=== PATIENT | female | born 1950 | race Caucasian/White ===

== ENCOUNTER 2017-10-31 19:17 | Emergency (ER) | payer OTHER ==
[~2017-10-31] VITALS: Ht 160 cm; Wt 56.7 kg
[~2017-10-31 19:17] MED LIST: ALBUTEROL SULF8.5 GM IH; ATIVAN0.5 MG PO; BENZONATATE200 MG PO; BREO ELLIPTA I1 EACH INH; CLARITIN10 MG PO; DULCOLAX5 MG PO; EPIPEN 2-P0.3 MG/0.3 IM; EXCEDRIN MIGRA1 EAC2 PO; FAMOTIDINE20 MG PO; LIDODERM700 MG TD; LYRICA50 MG PO; MONTELUKAST SOD10 MG PO; NASALCROM26 ML NAS; PREMARIN0.625 MG PO; PROMETHAZINE12.5 M1 PO; SUDOGEST30 MG PO; ULTRAM50 MG PO; VENTOLIN HFA18 GM INH; ZOFRAN ODT4 MG SL; ZYRTEC10 MG PO
[2017-10-31] MEDS ORDERED: ZOFRAN4 MG PO (22:52)
== END 2017-10-31 23:37 | disposition home or self-care (01) ==
LOC: ED 19:17
DX: R10.30 Lower abdominal pain, unspecified (principal); J32.9 Chronic sinusitis, unspecified; Z88.2 Allergy status to sulfonamides; Z88.5 Allergy status to narcotic agent; Z88.6 Allergy status to analgesic agent; Z91.040 Latex allergy status; Z88.8 Allergy status to other drugs, medicaments and biological substances; Z88.1 Allergy status to other antibiotic agents; Z79.899 Other long term (current) drug therapy
CPT/HCPCS: 80053; 81001; 83690; 85025; 96374; 99283; J2405; J7030

== ENCOUNTER 2018-07-09 10:38 | Emergency (ER) | payer OTHER ==
[~2018-07-09] VITALS: Ht 160 cm; Wt 56.8 kg
--- OUTSIDE RECORDS SUMMARY | ~2018-07-09 | XMS | Encounter Summary ---
Demographics + + + | Address | [address] | | | [place] [address] | + + + | Home Phone | | + + + | Preferred Language | Unknown | + + + | Marital Status | | + + + | Yarsani Affiliation | Unknown | + + + | Race | Unknown | + + + | Ethnic Group | Unknown | + + + Author + + + | Author | [facility] | | | and Satishana | + + + | Organization | [facility] | | | and Satishana | + + + | Address | Unknown | + + + | Phone | Unavailable | + + + Support + + + + + | Name | Relationship | Address | Phone | + + + + + | Faraz Kwan | ECON | [address] | | | | | [place] | | | | | [address] | | + + + + + Care Team Providers + +------+ + | Care Medical Administrative Name | Role | Phone | + +------+ + | Joey Baez MD | PCP | | + +------+ + Reason for Visit + + + | Reason | Comments | + + + | Referral | surgery | + + + Encounter Details +--------+ + + + + | Date | Type | Department | Care Team | Description | +--------+ + + + + | 05/24/ | Telephone | [facility] | Lawrence Carr MD | Referral (surgery) | | 2018 | | GASTROENTEROLOGY | [address], [place] | | | | | [address] [place] | [address] [place], [place] | | | | | [address] [place], [place] | [address] | | | | | [address] | | | | | | [phone] | | | +--------+ + + + + Social History + +--------+ +--------+------+ | Tobacco Use | Types | Packs/Day | Years | Date | | | | | Used | | + +--------+ +--------+------+ | Current Every Day | Cigars | | | | | Smoker | | | | | + +--------+ +--------+------+ + +---+---+---+ | Smokeless Tobacco: | | | | | Never Used | | | | + +---+---+---+ + + | Comments: 1-2 times per year | + + + + +---------+ + | Alcohol Use | Drinks/We | oz/Week | Comments | | | ek | | | + + +---------+ + | Yes | 3 | 1.8 | 2-3 glasses of wine a week | | | Glasses | | | | | of wine | | | + + +---------+ + + + + | Sex Assigned at | Date Recorded | | | | + + + | Not on file | | + + + as of this encounter Plan of Treatment Not on fileas of this encounter Visit Diagnoses Not on filein this encounter"
--- OUTSIDE RECORDS SUMMARY | ~2018-07-09 | XMS | Encounter Summary ---
Demographics + + + | Address | [address] | | | [place] [address] | + + + | Home Phone | | + + + | Preferred Language | Unknown | + + + | Marital Status | | + + + | Judaism Affiliation | Unknown | + + + | Race | Unknown | + + + | Ethnic Group | Unknown | + + + Author + + + | Author | [facility] | | | and Satishana | + + + | Organization | [facility] | | | and Satishana | + + + | Address | Unknown | + + + | Phone | Unavailable | + + + Support + + + + + | Name | Relationship | Address | Phone | + + + + + | Faraz Kwan | ECON | [address] | | | | | [place] | | | | | [address] | | + + + + + Care Team Providers + +------+ + | Care Engineering Surveyor Name | Role | Phone | + +------+ + | Joey Baez MD | PCP | | + +------+ + Reason for Referral Evaluate & Treat (Routine) + + + + + + + | Status | Reason | Specialty | Diagnoses / | Referred By | Referred To | | | | | Procedures | Contact | Contact | + + + + + + + | Authorized | Specialty | Surgery | Diagnoses | Harri, | Courtney, | | | Services | | | Lawrence Hinson MD | Herminia Rubio, | | | Required | | Gastrointest | [address] | | | | | inal tract | [place], [place] | [address] | | | | | imaging | [address] [place] | [address] | | | | | abnormality | [place], [place] | [place], [place] | | | | | Obstipation | [address] | [address] Phone: | | | | | | Phone: | [phone] | | | | | Generalized | [phone] | Fax: | | | | | abdominal | Fax: | [phone] | | | | | pain | [phone] | | + + + + + + + Reason for Visit + + + | Reason | Comments | + + + | Insurance | referral to surgeon | | Authorization | | + + + Encounter Details +--------+ + + + + | Date | Type | Department | Care Team | Description | +--------+ + + + + | 05/01/ | Telephone | [facility] | Lawrence Carr MD | Insurance | | 2018 | | GASTROENTEROLOGY | [address], [place] | Authorization | | | | [address] [place] | [address] [place], [place] | (referral to | | | | [address] [place], [place] | [address] | surgeon) | | | | [address] | | | | | | [phone] | | | +--------+ + + + [...] as of this encounter Plan of Treatment + +--------+ + + | Name | Priori | Associated Diagnoses | Order Schedule | | | ty | | | + +--------+ + + | Ambulatory referral to General | Routin | Gastrointestinal | Expected: | | Surgery | e | tract imaging | 05/23/2018, Expires: | | | | abnormality | 05/09/2019 | | | | Obstipation | | | | | Generalized | | | | | abdominal pain | | + +--------+ + + as of this encounter Visit Diagnoses + + | Diagnosis | + + | Gastrointestinal tract imaging abnormality - Primary | + + | Nonspecific (abnormal) findings on radiological and other examination of | | gastrointestinal tract | + + | Obstipation | + + | Unspecified constipation | + + | Generalized abdominal pain | + + | Abdominal pain, generalized | + +"
--- OUTSIDE RECORDS SUMMARY | ~2018-07-09 | XMS | Encounter Summary ---
Demographics + + + | Address | [address] | | | [place] [address] | + + + | Home Phone | | + + + | Preferred Language | Unknown | + + + | Marital Status | | + + + | Christianity Affiliation | Unknown | + + + | Race | Unknown | + + + | Ethnic Group | Unknown | + + + Author + + + | Author | [facility] | | | and Satishana | + + + | Organization | [facility] | | | and Satishana | + + + | Address | Unknown | + + + | Phone | Unavailable | + + + Support + + + + + | Name | Relationship | Address | Phone | + + + + + | Faraz Kwan | ECON | [address] | | | | | [place], [place] | | | | | [address] | | + + + + + Care Team Providers + +------+ + | Care Timber Feller Name | Role | Phone | + +------+ + | Joey Baez MD | PCP | | + +------+ + Encounter Details +--------+ + + + + | Date | Type | Department | Care Team | Description | +--------+ + + + + | 05/09/ | Documentati | [facility] | Lawrence Carr MD | | | 2018 | on | GASTROENTEROLOGY | [address], [place] | | | | | [address] [place] | [address] [place], [place] | | | | | [address] [place], [place] | [address] | | | | | [address] | | | | | | [phone] | | | +--------+ + + + [...]
--- OUTSIDE RECORDS SUMMARY | ~2018-07-09 | XMS | Encounter Summary ---
Demographics + + + | Address | [address] | | | [place] [address] | + + + | Home Phone | | + + + | Preferred Language | Unknown | + + + | Marital Status | | + + + | Confucianist Affiliation | Unknown | + + + | Race | Unknown | + + + | Ethnic Group | Unknown | + + + Author + + + | Author | [facility] | | | and Satishana | + + + | Organization | [facility] | | | and Satishana [...] [place] | | | | | [address] | | + + + + + Care Team Providers + +------+ + | Care Tobacco Buyer Name | Role | Phone | + +------+ + | Joey Baez MD PCP | | + +------+ + Reason for Visit + + + | Reason | Comments | + + + | Appointment | simona enriquez study 04/28/18 | + + + Encounter Details +--------+ + + + + | Date | Type | Department | Care Team | Description | +--------+ + + + + | 04/12/ | Telephone | [facility] [place] | Lawrence Carr MD | Appointment (sit | | 2017 | | GASTROENTEROLOGY | [address] [place] | enriquez study 04/28/18) | | | | [address] [place] | [address] [place], [place] | | | | | [address] [place], [place] | [address] | | | | | [address] | | | | | | [phone] | | | +--------+ + + + [...] Treatment Not on fileas of this encounter Results XR Abdomen AP (05/04/2018 0942) + + + | Narrative | Performed At | + + + | CLINICAL INFORMATION: Constipation. COMPARISON: January 29, 2018. | [facility] | | FINDINGS: Frontal views of the abdomen. Bowel gas pattern: No | | | evidence of bowel obstruction. 10 markers are noted within the | | | left colon. Abnormal calcifications: None. Bones: No acute | | | abnormality. Other: Visualized bases are clear. Surgical clips | | | are noted at the left hemipelvis. IMPRESSION - Persistent | | | retention of 10 markers. Dictated and Signed by: | | | Tung Borrero MD Electronically signed: 05/04/2018 11:13 AM | | + + + + + | Procedure Note | + + | Raheem, Rad Results In - 05/04/2018 1117 PDT CLINICAL INFORMATION: Constipation. | | | | COMPARISON: January 29, 2018. | | | | FINDINGS: | | Frontal views of the abdomen. | | | | Bowel gas pattern: No evidence of bowel obstruction. 10 markers are noted | | within the left colon. | | | | Abnormal calcifications: None. | | | | Bones: No acute abnormality. | | | | Other: Visualized bases are clear. Surgical clips are noted at the left | | hemipelvis. | | | | | | IMPRESSION - Persistent retention of 10 markers. | | | | | | Dictated and Signed by: Tung Borrero MD | | Electronically signed: 05/04/2018 11:13 AM | + + + +---------+ + + | Performing | Address | City/State/Zipcode | Phone Number | | Organization | | | | + +---------+ + + | [facility] | | | | + +---------+ + + XR Abdomen AP (05/01/2018 0943) + + + | Narrative | Performed At | + + + | CLINICAL INFORMATION: Constipation. COMPARISON: 12/15/2017. | [facility] | | FINDINGS: Frontal view of the abdomen. Bowel gas pattern: No | | | evidence of bowel obstruction. Mild to moderate amount of stool | | | throughout the colon. 47 markers are noted. Abnormal | | | calcifications: None identified. Bones: No acute abnormality. | | | Other: Surgical clips are noted at the left hemipelvis. | | | IMPRESSION - 47 markers remain within the colon. Mild to | | | moderate stool burden. Dictated and Signed by: | | | Tung Borrero MD Electronically signed: 05/01/2018 9:58 AM | | + + + + + | Procedure Note | + + | Raheem, Rad Results In - 05/01/2018 1001 PDT CLINICAL INFORMATION: Constipation. | | | | COMPARISON: 12/15/2017. | | | | FINDINGS: | | Frontal view of the abdomen. | | | | Bowel gas pattern: No evidence of bowel obstruction. Mild to moderate amount of | | stool throughout the colon. 47 markers are noted. | | | | Abnormal calcifications: None identified. | | | | Bones: No acute abnormality. | | | | Other: Surgical clips are noted at the left hemipelvis. | | | | | | IMPRESSION - | | 47 markers remain within the colon. | | | | Mild to moderate stool burden. | | | | | | Dictated and Signed by: Tung Borrero MD | | Electronically signed: 05/01/2018 9:58 AM | + + + +---------+ + + | Performing | Address | City/State/Zipcode | Phone Number | | Organization | | | | + +---------+ + + | [facility] | | | | + +---------+ + + in this encounter Visit Diagnoses + + | Diagnosis | + + | Constipation, unspecified constipation type - Primary | + +"
--- OUTSIDE RECORDS SUMMARY | ~2018-07-09 | XMS | Encounter Summary ---
Demographics + + + | Address | [address] | | | [place] [address] | + + + | Home Phone | | + + + | Preferred Language | Unknown | + + + | Marital Status | | + + + | Roman Catholic Affiliation | Unknown | + + + | Race | Unknown | + + + | Ethnic Group | Unknown | + + + Author + + + | Author | [facility] | | | and Satishana | + + + | Organization | [facility] | | | and [...] [place], [place] | | | | | [address] | | + + + + + Care Team Providers + +------+ + | Care Resin Coater Name | Role | Phone | + [...] | on | GASTROENTEROLOGY | [address], [place] | | | | | [address] [place] | [address] [place], [place] | | | | | [address] [place], [place] | [address] | | | | | [address] | | | | | | [phone] | | | +--------+ + + + [...] + + + as of this encounter Progress Notes Lawrence Carr MD - 05/09/2018 1671 PDTThe patient's colonic transit study was abnormal. She had 10 clips retained within the left colon on day 6. To complete the evaluation she sh ould have deficography and possible anal rectal manometry. [facility] [place] and she provided us with names with respect to the same.in this enco unter Plan of Treatment Not on fileas of this encounter Visit Diagnoses Not on filein this encounter"
--- OUTSIDE RECORDS SUMMARY | ~2018-07-09 | XMS | Encounter Summary ---
Demographics + + + | Address | [address] | | | [place] [address] | + + + | Home Phone | | + + + | Preferred Language | Unknown | + + + | Marital Status | | + + + | Zoroastrian Affiliation | Unknown | + + + | Race | Unknown | + + + | Ethnic Group | Unknown | + + + Author + + + | Author | [facility] | | | and Satishana | + + + | Organization | [facility] | | | and [...] [place] | | | | | [address] | | + + + + + Care Team Providers + +------+ + | Care Director Of Aviation Name | Role | Phone | + [...] 2018 | | GASTROENTEROLOGY | [address], [place] | | | | | [address] [place] | [address] [place], [place] | | | | | [address] [place], [place] | [address] | | | | | [address] | | | | | | [phone] | | | +--------+ + + + [...]
--- OUTSIDE RECORDS SUMMARY | ~2018-07-09 | XMS | Encounter Summary ---
Demographics + + + | Address | [address] | | | [place] [address] | + + + | Home Phone | | + + + | Preferred Language | Unknown | + + + | Marital Status | | + + + | Mandaen Affiliation | Unknown | + + + | Race | Unknown | + + + | Ethnic Group | Unknown | + + + Author + + + | Author | [facility] | | | and Satishana | + + + | Organization | [facility] | | | and Satishana [...] [place], [place] | | | | | [address] | | + + + + + Care Team Providers + +------+ + | Care Healthcare Management Consultant Name | Role | Phone | + +------+ + | Jeoy Baez MD | PCP | | + +------+ + Encounter Details +--------+ + + + + | Date | Type | Department | Care Team | Description | +--------+ + + + + | 05/09/ | Documentati | [facility] [place] | Lawrence Carr MD | | | 2018 | on | GASTROENTEROLOGY | [address], [place] | | | | | [address] [place] | [address] [place], [place] | | | | | [address] [place], [place] | [address] | | | | | [address] | | | | | | [phone] | | | +--------+ + + + [...] Progress Notes Lawrence Carr MD - 05/09/2018 5791 PDTThe patient's colonic transit study was abnormal. She had 10 clips retained within the left colon on day 6. To complete the evaluation she sh ould have deficography and possible anal rectal manometry. [facility] [place] and she provided us with names with respect to the same.in this enco unter Plan of Treatment Not on fileas of this encounter Visit Diagnoses Not on filein this encounter"
--- OUTSIDE RECORDS SUMMARY | ~2018-07-09 | XMS | Clinical Summary ---
Demographics + + + | Address | [address] | | | [place] [address] | + + + | Home Phone | | + + + | Preferred Language | Unknown | + + + | Marital Status | | + + + | Church Affiliation | Unknown | + + + | Race | Unknown | + + + | Ethnic Group | Unknown | + + + Author + + + | Author | [facility] | | | and Satishana | + + + | Organization | [facility] | | | and Satishana | + + + | Address | Unknown | + + + | Phone | Unavailable | + + + Support + + + + + | Name | Relationship | Address | Phone | + + + + + | Faraz Mcelroy | ECON | [address] | | | | | [place] | | | | | [address] | | + + + + + Care Team Providers + +------+ + | Care Bilingual Sales Consultant Name | Role | Phone | + +------+ + | Joey Baez MD | PP | | + +------+ + Allergies + + + + + + | Active Allergy | Reactions | Severity | Noted | Comments | | | | | Date | | + + + + + + | Acetaminophen | Hives, Swelling | Medium | 12/06/19 | | | | | | 18 | | + + + + + + | Adhesive & Tape | Other (See Comments) | Medium | 02/02/20 | blisters | | | | | 18 | | + + + + + + | Bacitracin-Neomycin- | Rash | Low | 12/06/19 | | | Polymyxin | | | 18 | | + + + + + + | Celecoxib | Other (See Comments) | | 12/06/19 | Doesn't recall | | | | | 18 | reaction | + + + + + + | Codeine | Shortness Of Breath, | High | 12/06/19 | | | | Swelling | | 18 | | + + + + + + | Fomepizole | Other (See Comments) | | 12/06/19 | Doesn't recall | | | | | 18 | reaction | + + + + + + | Ibuprofen | Itching, Swelling | Medium | 12/06/19 | | | | | | 18 | | + + + + + + | Latex | Other (See Comments) | Medium | 12/06/19 | blisters | | | | | 18 | | + + + + + + | Morphine | Shortness Of Breath | High | 12/06/19 | | | | | | 18 | | + + + + + + | Naproxen | Itching, Swelling, | Medium | 12/06/19 | | | | Rash | | 18 | | + + + + + + | Rofecoxib | Other (See Comments) | | 12/06/19 | Doesn't recall | | | | | 18 | reaction | + + + + + + | Salicylates | Other (See Comments) | | 12/06/19 | Doesn't recall | | | | | 18 | reaction | + + + + + + | Sulfa Antibiotics | Anaphylaxis | High | 12/06/19 | | | | | | 18 | | + + + + + + | Sulfinpyrazone | Anaphylaxis | High | 12/06/19 | | | | | | 18 | | + + + + + + | Sulfonylureas | Anaphylaxis | High | 12/06/19 | | | | | | 18 | | + + + + + + | Thiazide-Type | Other (See Comments) | | 12/06/19 | Doesn't recall | | Diuretics | | | 18 | reaction | + + + + + + | Tipranavir | Other (See Comments) | | 12/06/19 | Doesn't recall | | | | | 18 | reaction | + + + + + + | Trimethoprim | Other (See Comments) | | 12/06/19 | Doesn't recall | | | | | 18 | reaction | + + + + + + | Triptans | Other (See Comments) | | 12/06/19 | Doesn't recall | | | | | 18 | reaction | + + + + + + Current Medications + + +---------+---------+------+------+-------+ | Prescription | Sig. | Disp. | Refills | Star | End | Statu | | | | | | t | Date | s | | | | | | Date | | | + + +---------+---------+------+------+-------+ | loratadine | Take 10 mg by mouth | | | | | Activ | | (CLARITIN) 10 mg | Daily. | | | | | e | | tablet | | | | | | | + + +---------+---------+------+------+-------+ | EPINEPHrine | Inject 0.3 mg into | | | | | Activ | | auto-injector | the muscle as needed | | | | | e | | (EPIPEN 2-SABRA) 0.3 | for Anaphylaxis. | | | | | | | mg/0.3 mL injection | | | | | | | + + +---------+---------+------+------+-------+ | pregabalin | Take 50 mg by mouth | | | | | Activ | | (LYRICA) 50 MG | 3 times daily. 1-3 | | | | | e | | capsule | times daily if | | | | | | | | needed | | | | | | + + +---------+---------+------+------+-------+ | estrogens, | Take 0.625 mg by | | | | | Activ | | conjugated, | mouth Daily. | | | | | e | | (PREMARIN) 0.625 mg | | | | | | | | tablet | | | | | | | + + +---------+---------+------+------+-------+ | albuterol | Inhale 2 puffs into | | | | | Activ | | (VENTOLIN HFA) 90 | the lungs every 6 | | | | | e | | mcg/puff inhaler | hours as needed for | | | | | | | | Wheezing. | | | | | | + + +---------+---------+------+------+-------+ | fluticasone | 1 spray by Nasal | | | | | Activ | | (FLONASE) 50 | route Daily as | | | | | e | | mcg/nasal spray | needed for | | | | | | | | Allergies. | | | | | | + + +---------+---------+------+------+-------+ | polyethylene | Take 17 g by mouth 2 | | | | | Activ | | glycol (MIRALAX) | times daily. | | | | | e | | packet | | | | | | | + + +---------+---------+------+------+-------+ | linaclotide | Take 1 capsule by | 90 | 3 | 06/0 | | Activ | | (LINZESS) 290 mcg | mouth every morning | capsule | | 6/20 | | e | | capsule | (before breakfast). | | | 18 | | | + + +---------+---------+------+------+-------+ Active Problems + + + | Problem | Noted Date | + + + | Obstipation | 02/01/2018 | + + + | Small bowel obstruction (HCC) | 02/01/2018 | + + + Encounters +--------+ + + + + | Date | Type | Specialty | Care Team | Description | +--------+ + + + + | 05/24/ | Telephone | | Lawrence Carr MD | Referral (surgery) | | 2018 | | | | | +--------+ + + + + | 05/09/ | Documentati | | Lawrence Carr MD | | | 2017 | on | | | | +--------+ + + + + | 05/09/ | Documentati | | Lawrence Carr MD | | | 2017 | on | | | | +--------+ + + + + | 05/04/ | Hospital | | Lawrence Carr MD | Constipation, | 2017 | Encounter | | | unspecified | | | | | | constipation type | +--------+ + + + + | 05/01/ | Hospital | | Lawrence Carr MD | Constipation, | | 2017 | Encounter | | | unspecified | | | | | | constipation type | +--------+ + + + + | 05/01/ | Telephone | | Lawrence Carr MD | Insurance | | 2017 | | | | Authorization | | | | | | (referral to | | | | | | surgeon) | +--------+ + + + + | 04/12/ | Telephone | | Lawrence Carr MD | Appointment (sitz | | 2017 | | | | enriquez study 04/28/18) | +--------+ + + + + from Last 3 Months Family History + + +------+ + | Medical History | Relation | Name | Comments | + + +------+ + | Cervical cancer | Sister | | | + + +------+ + | Colon cancer | Sister | | | + + +------+ + + +------+ + + | Relation | Name | Status | Comments | + +------+ + + | Father | | | | + +------+ + + | Mother | | Alive | | + +------+ + + | Sister | | | | + +------+ + + Social History + +--------+ +--------+------+ [...] on file | | + + + Last Filed Vital Signs + + + + | Vital Sign | Reading | Time Taken | + + + + | Blood Pressure | 105/65 | 02/02/2018 1400 PDT | + + + + | Pulse | 72 | 02/02/2018 1400 PDT | + + + + | Temperature | 36.5 C (97.7 F) | 02/02/2018 1331 PDT | + + + + | Respiratory Rate | 16 | 02/02/2018 1400 PDT | + + + + | Oxygen Saturation | 98% | 02/02/2018 1400 PDT | + + + + | Inhaled Oxygen | - | - | | Concentration | | | + + + + | Weight | 57.2 kg (126 lb 1.7 | 02/02/20181152 PDT | | | oz) | | + + + + | Height | 161.3 cm (5' 3.5") | 02/02/20181152 PDT | + + + + | Body Mass Index | 21.99 | 02/02/20181152 PDT | + + + + Plan of Treatment + + + + + | Health Maintenance | Due Date | Last Done | Comments | + + + + + | Hepatitis C | | | | | Screening | 2 | | | + + + + + | Vaccine: | | | | | Dtap/Tdap/Td (1 - | 1 | | | | Tdap) | | | | + + + + + | BREAST CANCER | | | | | SCREENING (MAMM Q2 | 2 | | | | YEARS 50-74) | | | | + + + + + | Vaccine: | | | | | Pneumococcal 65+ | 7 | | | | Low/Medium Risk (1 | | | | | of 2 - PCV13) | | | | + + + + + | Adult Annual | | | | | Wellness Visit | 7 | | | + + + + + | Vaccine: Influenza | | | | | (#1) | 8 | | | + + + + + | Colorectal Cancer | | 02/02/2018, 02/02/2018 | | | Screening | 8 | | | | (Colonoscopy) | | | | + + + + + Procedures + +--------+ + + + | Procedure Name | Priori | Date/Time | Associated Diagnosis | Comments | | | ty | | | | + +--------+ + + + | XR ABDOMEN AP | Routin | 05/04/2018 | Constipation, | Results for this | | | e | 0942 PDT | unspecified | procedure are in the | | | | | constipation type | results section. | + +--------+ + + + | XR ABDOMEN AP | Routin | 05/01/2018 | Constipation, | Results for this | | | e | 0943 PDT | unspecified | procedure are in the | | | | | constipation type | results section. | + +--------+ + + + from Last 3 Months Results XR Abdomen AP (05/04/2018 0942)Only the most recent of 2 results within the time period is included. + + + | Narrative | Performed [...] | | | + +---------+ + + from Last 3 Months Insurance + +--------+ +--------+ +---------+ | Payer | Benefi | Subscriber | Type | Phone | Address | | | t Plan | ID | | | | | | / | | | | | | | Group | | | | | + +--------+ +--------+ +---------+ | MEDICARE | MEDICA | [id number] | Medica | [phone] | | | | RE | | re | [phone] | | | | PART A | | | | | + +--------+ +--------+ +---------+ | [facility] | PHP | [id number] | PPO | [phone] | | | PLAN | PERSON | | | [phone] | | | | [place] | | | | | | | OPEN | | | | | | | OPTION | | | | | + +--------+ +--------+ +---------+ + +--------+ +--------+ + + | Guarantor Name | Accoun | Relation to | Date | Phone | Billing Address | | | t Type | Patient | of | | | | | | | | | | + +--------+ +--------+ + + | KATELYN MCELROY | Person | Self | [birth year] | Work: | [address] | | | al/[place] | | [phone] | [phone] | [place] [address] | | | eugenio | | | [phone] | | + +--------+ +--------+ + +
--- OUTSIDE RECORDS SUMMARY | ~2018-07-09 | XMS | Encounter Summary ---
Demographics + + + | Address | [address] | | | [place] [address] | + + + | Home Phone | | + + + | Preferred Language | Unknown | + + + | Marital Status | | + + + | Mandaen Affiliation | Unknown | + + + | Race | Unknown | + + + | Ethnic Group | Unknown | + + + Author + + + | Author | [facility] | | | and Satishana | + + + | Organization | [facility] | | | and Satishana | + + + | Address | Unknown | + + + | Phone | Unavailable | + + + Support + + + + + | Name | Relationship | Address | Phone | + + + + + | Faraz Kwan | ECON | [address] | | | | | [place], [place] | | | | | [address] | | + + + + + Care Team Providers + +------+ + | Care Audio Visual Equipment Rental Clerk Name | Role | Phone | + +------+ + | Joey Baez MD | PCP | | + +------+ + Encounter Details +--------+ + + + + | Date | Type | Department | Care Team | Description | +--------+ + + + + | 05/04/ | Hospital | [facility] | Lawrence Carr MD | Constipation, | | 2018 | Encounter | MED CTR XRAY [address] | [address] [place], [place] | unspecified | | | | [place] | [address] | constipation type | | | | [place] [phone] | [address] | | | | | [phone] | | | +--------+ + + + [...] + + + as of this encounter Medications at Time of Discharge + + +---------+---------+ + + | Medication | Sig. | Disp. | Refills | Start | End Date | | | | | | Date | | + + +---------+---------+ + + | albuterol | Inhale 2 puffs into | | | | | | (VENTOLIN HFA) 90 | the lungs every 6 | | | | | | mcg/puff inhaler | hours as needed for | | | | | | | Wheezing. | | | | | + + +---------+---------+ + + | EPINEPHrine | Inject 0.3 mg into | | | | | | auto-injector | the muscle as needed | | | | | | (EPIPEN 2-SABRA) 0.3 | for Anaphylaxis. | | | | | | mg/0.3 mL injection | | | | | | + + +---------+---------+ + + | estrogens, | Take 0.625 mg by | | | | | | conjugated, | mouth Daily. | | | | | | (PREMARIN) 0.625 mg | | | | | | | tablet | | | | | | + + +---------+---------+ + + | fluticasone | 1 spray by Nasal | | | | | | (FLONASE) 50 | route Daily as | | | | | | mcg/nasal spray | needed for | | | | | | | Allergies. | | | | | + + +---------+---------+ + + | linaclotide | Take 1 capsule by | 90 | 3 | 02/09/20 | | | (LINZESS) 290 mcg | mouth every morning | capsule | | 18 | | | capsule | (before breakfast). | | | | | + + +---------+---------+ + + | loratadine | Take 10 mg by mouth | | | | | | (CLARITIN) 10 mg | Daily. | | | | | | tablet | | | | | | + + +---------+---------+ + + | polyethylene | Take 17 g by mouth 2 | | | | | | glycol (MIRALAX) | times daily. | | | | | | packet | | | | | | + + +---------+---------+ + + | pregabalin | Take 50 mg by mouth | | | | | | (LYRICA) 50 MG | 3 times daily. 1-3 | | | | | | capsule | times daily if | | | | | | | needed | | | | | + + +---------+---------+ + + as of this encounter Plan of Treatment Not on fileas of this encounter Procedures + +--------+ + + + | [...] section. | + +--------+ + + + in this encounter Results XR Abdomen AP (05/04/2018 [...] + + | Constipation, unspecified constipation type | + +"
--- OUTSIDE RECORDS SUMMARY | ~2018-07-09 | XMS | Encounter Summary ---
Demographics + + + | Address | [address] | | | [place] [address] | + + + | Home Phone | | + + + | Preferred Language | Unknown | + + + | Marital Status | | + + + | Catholic Affiliation | Unknown | + + + | Race | Unknown | + + + | Ethnic Group | Unknown | + + + Author + + + | Author | [facility] | | | and Satishana | + + + | Organization | [facility] | | | and Satishana [...] [place], [place] | | | | | [address] | | + + + + + Care Team Providers + +------+ + | Care Utility Operator Name | Role | Phone | + [...] | on | GASTROENTEROLOGY | [address], [place] | | | | | [address] [place] | [address] [place], [place] | | | | | [address] [place], [place] | [address] | | | | | [address] | | | | | | [phone] | | | +--------+ + + + [...]
--- OUTSIDE RECORDS SUMMARY | ~2018-07-09 | XMS | Clinical Summary ---
Demographics + + + | Address | [address] | | | [place] [address] | + + + | Home Phone | | + + + | Preferred Language | Unknown | + + + | Marital Status | | + + + | Religion Affiliation | Unknown | + + + | Race | Unknown | + + + | Ethnic Group | Unknown | + + + Author + + + | Author | [facility] | | | and Satishana | + + + | Organization | [facility] | | [...] [place] | | | | | [address] | | + + + + + Care Team Providers + +------+ + | Care Bag Checker Name | Role | Phone | + [...] +--------+ +---------+ | MEDICARE | MEDICA | [id number] | Medica | [phone] | | | | RE | | re | [phone] | | | | PART A | | | | | + +--------+ +--------+ +---------+ | [facility] | PHP | [id number] | PPO | [phone] | | | PLAN | PERSON | [...] | 1949 | [phone] | [place] [address] | | | [place] | | | [phone] | | + +--------+ +--------+ + +
--- OUTSIDE RECORDS SUMMARY | ~2018-07-09 | XMS | Encounter Summary ---
Demographics + + + | Address | [address] | | | [place] [address] | + + + | Home Phone | | + + + | Preferred Language | Unknown | + + + | Marital Status | | + + + | Oriental Orthodox Affiliation | Unknown | + + + | Race | Unknown | + + + | Ethnic Group | Unknown | + + + Author + + + | Author | [facility] | | | and Satishana | + + + | Organization | [facility] | | | and Satishana | + + + | Address | Unknown | + + + | Phone | Unavailable | + + + Support + + + + + | Name | Relationship | Address | Phone | + + + + + | Faraz Kwan | ECON | [address] | | | | | [place], [place] | | | | | [address] | | + + + + + Care Team Providers + +------+ + | Care Tunnel Elastic Operator Lockstitch Name | Role | Phone | + +------+ + | Joey Baez MD | PCP | | + +------+ + Encounter Details +--------+ + + + + | Date | Type | Department | Care Team | Description | +--------+ + + + + | 05/01/ | Hospital | [facility] | Lawrence Carr MD | Constipation, | | 2018 | Encounter | MED CTR XRAY [address] | [address], [place] | unspecified | | | | [place] | [address] | constipation type | | | | [place] [phone] | [address] | | | | | [phone] | | | +--------+ + + + [...] in this encounter Results XR Abdomen AP (05/01/2018 0943) + + [...]
--- OUTSIDE RECORDS SUMMARY | ~2018-07-09 | XMS | Encounter Summary ---
Demographics + + + | Address | [address] | | | [place] [address] | + + + | Home Phone | | + + + | Preferred Language | Unknown | + + + | Marital Status | | + + + | Druze Affiliation | Unknown | + + + | Race | Unknown | + + + | Ethnic Group | Unknown | + + + Author + + + | Author | [facility] | | | and Satishana | + + + | Organization | [facility] | | | and Satishana | [...] [place], [place] | | | | | [address] | | + + + + + Care Team Providers + +------+ + | Care Equal Opportunity Representative Name | Role | Phone | + +------+ + | Joey Baez MD | PCP | | + +------+ + Encounter Details +--------+ + + + + | Date | Type | Department | Care Team | Description | +--------+ + + + + | 05/01/ | Hospital | [facility] | Lawrence Carr MD | Constipation, | | 2018 | Encounter | MED CTR XRAY [address] | [address] [place], [place] | unspecified | | | | [place] | [address] | constipation type | | | | [place] [phone] | [address] | | | | | [phone] | | | +--------+ + + + [...]
--- OUTSIDE RECORDS SUMMARY | ~2018-07-09 | XMS | Clinical Summary ---
Demographics + + + | Address | [address] | | | [place] [address] | + + + | Home Phone | | + + + | Preferred Language | Unknown | + + + | Marital Status | | + + + | Taoist Affiliation | 1041 | + + + | Race | Unknown | + + + | Ethnic Group | Unknown | + + + Author + + + | Author | [facility] | + + + | Organization | [facility] | + + + | Address | Unknown | + + + | Phone | Unavailable | + + + Support + + +---------+ + | Name | Relationship | Address | Phone | + + +---------+ + | Faraz Mcelroy | ECON | Unknown | | + + +---------+ + Care Team Providers + +------+ + | Care Direct Support Professional Home Health Name | Role | Phone | + +------+ + | Robert Aragon MD | PP | | + +------+ + Allergies Not on File Current Medications Not on file Active Problems Not on file Social History + +-------+ +--------+------+ | Tobacco Use | Types | Packs/Day | Years | Date | | | | | Used | | + +-------+ +--------+------+ | Never Assessed | | | | | + +-------+ +--------+------+ + + + | Sex Assigned at | Date Recorded | | | | + + + | Not on file | | + + + Last Filed Vital Signs + + + + | Vital Sign | Reading | Time Taken | + + + + | Blood Pressure | 113/70 | 07/19/2013 3:15 PM PST | + + + + | Pulse | 80 | 07/19/2013 3:15 PM PST | + + + + | Temperature | - | - | + + + + | Respiratory Rate | - | - | + + + + | Oxygen Saturation | - | - | + + + + | Inhaled Oxygen | - | - | | Concentration | | | + + + + | Weight | 53.5 kg (118 lb) | 06/25/2013 3:30 PM PDT | + + + + | Height | - | - | + + + + | Body Mass Index | - | - | + + + + Plan of Treatment Not on file Results Not on filefrom Last 3 Months Insurance + +--------+ +------+-------+---------+ | Payer | Benefi | Subscriber | Type | Phone | Address | | | t Plan | ID | | | | | | / | | | | | | | Group | | | | | + +--------+ +------+-------+---------+ | [employer] | FC-NET | [id number] | | | | | | WORK | | | | | + +--------+ +------+-------+---------+ + +--------+ +--------+ + + | Guarantor Name | Accoun | Relation to | Date | Phone | Billing Address | | | t Type | Patient | of | | | | | | | | | | + +--------+ +--------+ + + | KATELYN MCELROY | Person | Self [birth year] Home: | [address] | | | al/Fam | | 1950 | [phone] | [place] | | | [place] | | | [phone] | [address] | + +--------+ +--------+ + +"
--- OUTSIDE RECORDS SUMMARY | ~2018-07-09 | XMS | Clinical Summary ---
Demographics + + + | Address | [address] | | | [place] [address] | + + + | Home Phone | | + + + | Preferred Language | Unknown | + + + | Marital Status | | + + + | Congregational Affiliation | 1041 | + + + | Race | Unknown | + + + | Ethnic Group | Unknown | + + + Author + + + | Author | [facility] | + + + | Organization | [facility] | + + + | Address | Unknown | + + + | Phone | Unavailable | + + + Support + + +---------+ + | Name | Relationship | Address | Phone | + + +---------+ + | Faraz Mcelroy | ECON | Unknown | | + + +---------+ + Care Team Providers + +------+ + | Care Water Fitness Instructor Name | Role | Phone | + [...] +------+-------+---------+ | [employer] | [employer] | [id number] | | | | | | WORK [...] | | al/Fam | | 1950 | [phone] | [place] | | | [place] | | | [phone] | [address] | + +--------+ +--------+ + +"
--- OUTSIDE RECORDS SUMMARY | ~2018-07-09 | XMS | Encounter Summary ---
Demographics + + + | Address | [address] | | | [place] [address] | + + + | Home Phone | | + + + | Preferred Language | Unknown | + + + | Marital Status | | + + + | Nondenominational Affiliation | Unknown | + + + | Race | Unknown | + + + | Ethnic Group | Unknown | + + + Author + + + | Author | [facility] | | | and Satishana | + + + | Organization | [facility] | | | and [...] [place], [place] | | | | | [address] | | + + + + + Care Team Providers + +------+ + | Care Orthopedic Assistant Name | Role | Phone | + +------+ + | Joey Baez MD | PCP | | + +------+ + Encounter Details +--------+ + + + + | Date | Type | Department | Care Team | Description | +--------+ + + + + | 05/04/ | Hospital | [facility] | Lawrence Carr MD | Constipation, | | 2018 | Encounter | MED CTR XRAY [address] | [address] [place], [place] | unspecified | | | | [place] | [address] | constipation type | | | | [place] [phone] | [address] | | | | | [phone] | | | +--------+ + + + [...]
--- OUTSIDE RECORDS SUMMARY | ~2018-07-09 | XMS | Encounter Summary ---
Demographics + + + | Address | [address] | | | [place] [address] | + + + | Home Phone | | + + + | Preferred Language | Unknown | + + + | Marital Status | | + + + | Scientology Affiliation | Unknown | + + + | Race | Unknown | + + + | Ethnic Group | Unknown | + + + Author + + + | Author | [facility] | | | and Satishana | + + + | Organization | [facility] | | | and Satishana [...] [place] | | | | | [address] | | + + + + + Care Team Providers + +------+ + | Care Refinery Operator Assistant Name | Role | Phone | [...] | | Gastrointest | [address] | [address] | | | | | inal tract | [place], [place] | [address] | | | | | imaging | [address] [place] | [address] | | | | | abnormality | [place], [place] | [place], [place] | | | | | Obstipation | [address] | [address] Phone: | | | | | | Phone: | [phone] | | | | | Generalized | [phone] | Fax: | | | | | abdominal | Fax: | [phone] | | | | | pain | [phone] | | + + + + + [...] + + | 05/01/ | Telephone | [facility] | Lawrence Carr MD | Insurance | | 2018 | | GASTROENTEROLOGY | [address] [place], [place] | Authorization | | | | [address] [place] | [address] [place], [place] | (referral to | | | | [address] [place], [place] | [address] | surgeon) | | | | [address] | | | | | | [phone] | | | +--------+ + + + [...]
--- OUTSIDE RECORDS SUMMARY | ~2018-07-09 | XMS | Encounter Summary ---
Demographics + + + | Address | [address] | | | [place] [address] | + + + | Home Phone | | + + + | Preferred Language | Unknown | + + + | Marital Status | | + + + | Episcopalian Affiliation | Unknown | + + + | Race | Unknown | + + + | Ethnic Group | Unknown | + + + Author + + + | Author | [facility] | | | and Satishana | + + + | Organization | [facility] | | | and [...] [place] | | | | | [address] | | + + + + + Care Team Providers + +------+ + | Care Booth Usher Name | Role | Phone | + [...] | 04/12/ | Telephone | [facility] | Lawrence Carr MD | Appointment (sit | | 2017 | | GASTROENTEROLOGY | [address] [place] | enriquez study 04/28/18) | | | | [address] [place] | [address] [place], [place] | | | | | [address] [place], [place] | [address] | | | | | [address] | | | | | | [phone] | | | +--------+ + + + [...]
[~2018-07-09 10:38] MED LIST changes: +ZOFRAN4 MG PO
[2018-07-09] MEDS ORDERED: IPRAT-ALBUT 0.5-3 ML INH (12:53)
[2018-07-09] MEDS ORDERED: ATROVENT HFA12.9 GM INH (12:55)
[2018-07-09] MEDS ORDERED: PREDNISONE20 MG PO (12:55)
[2018-07-09] MEDS ORDERED: VENTOLIN HFA18 GM INH (13:00)
== END 2018-07-09 13:50 | disposition home or self-care (01) ==
LOC: ED 10:38
DX: J18.9 Pneumonia, unspecified organism (principal); J45.901 Unspecified asthma with (acute) exacerbation; Z88.2 Allergy status to sulfonamides; Z88.5 Allergy status to narcotic agent; Z91.040 Latex allergy status; Z88.1 Allergy status to other antibiotic agents; Z79.899 Other long term (current) drug therapy
CPT/HCPCS: 71046; 94640; 99283; J7512

== ENCOUNTER 2020-08-26 07:47 | Day surgery (SDC) | payer BC ==
[~2020-08-26] VITALS: Ht 160 cm; Wt 56.4 kg
[~2020-08-26 07:47] MED LIST changes: +AMOX TR-K CLV1 EAC1 PO; +ASPIRIN EC325 MG PO; +ATROVENT HFA12.9 GM INH; +FLONASE ALLERG9.9 ML NAS; +IPRAT-ALBUT 0.5-3 ML INH; +LINZESS290 MCG PO; +PREDNISONE20 MG PO; +PSEUDOEPHEDRINE30 MG PO; +SALINE NASAL M126 ML NS; +SPRAVATO NS; +VENTOLIN HFA18 GM
[2020-08-26] MEDS ORDERED: IPRAT-ALBUT 0.5-3 ML INH (08:30)
[2020-08-26] MEDS ORDERED: SPIRIVA18 MCG INH (08:31)
[2020-08-26] MEDS ORDERED: WIXELA 500-501 EACH INH (08:36)
--- NOTE | 2020-08-26 11:01 | NUR ---
08/26/20 1101 HardinJillian varghese Dipti 1747- PT TO PACU IN SUPINE POSITION. EYES CLOSED. DOES NOT RESPOND TO VERBAL STIMULI. JAW THRUST TO PROMOTE ADEQUATE VENTILATION. BREATHING EASY AND UNLABORED. SPO2 >95% ON 6 L O2 VIA SIMPLE MASK. VSS. 0955- PT AWAKENS TO VERBAL AND TACTILE STIMULI. GOES QUICKLY BACK TO SLEEP. SPO2 >95% ON 6 LO2 VIA SIMPLE MASK. VSS. 0958- PT REPORTING NAUSEA. WILL UTILIZE PRNS. VSS. 1008- PT REQUESTING WARM BLANKETS, ICE PACKS FOR CHRONIC CUETO, COLD CLOTH OVER EYES, AND MULTIPLE BED ADJUSTMENTS. 1012- PT DEMONSTRATING INCREASED RESPIRTORY RATE AND AUDIBLE STRIDOR. PT REQUESTING WATER. PT ENCOURAGED TO RELAX AND TAKE DEEP BREATHS. MEDIA STRATEGIST NOTIFIED. PTS OWN INHALER UTILIZED. 1025- PT REQUIRING FREQUENT REPOSITIONING AND ORAL MOUTH SWABS. VSS. 1030- PT SLEEPING, SPO2 MID 80S ON ROOM AIR WHILE ASLEEP. BLOW BY O2 PROVIDED. VSS. 1040- PT AWAKENS AND STATES SHE FEELS BETER. SPO2 >90% ON ROOM AIR. PT REQUESTING ASPIRIN FOR HEADACHE. MEDIA STRATEGIST AT BEDSIDE TO CHECK ON PATIENT. NO NEW ORDERS RECEIVED. 1047- PT SLEEPING COMFORTABLY. VSS. PREPARING FOR DC FROM PACU.
--- NOTE | 2020-08-26 11:30 | NUR ---
1055: PATIENT BACK IN DAY SURGERY ROOM FROM PACU. 2 ICE PACKS AND COOL TOWEL TO FOREHEAD. C/O PAIN 7/10 PAIN. PATIENT REQUESTS ASPIRIN FOR PAIN. VERBAL ORDER RECEIVED FROM DR. CHONG FOR ASPIRIN. IV SITE WNL. SCDs ON. VS CHECKED. NASAL PACKING IN PLACE. STRING TAPED TO RIGHT CHEEK. AT BEDSIDE. CALL LIGHT WITHIN REACH.
--- NOTE | 2020-08-26 11:34 | NUR ---
PATIENT ASSISTED OOB AND TO BATHROOM. GAIT STEADY TO AND FROM BATHROOM. MEDICATED FOR PAIN WITH ASPIRIN. ICE PACKS AND TOWEL REPLACED ON FOREHEAD. LIGHTS DIMMED PER REQUEST. AT BEDSIDE. CALL LIGHT WITHIN REACH.
--- NOTE | 2020-08-26 13:30 | NUR ---
1230: PATIENT STATES PAIN IMPROVED. WOULD LIKE TO GO HOME. 1248: PATIENT DRESSED WITH HELP FROM . DISCHARGE INSTRUCTIONS GIVEN TO PATIENT AND . IV DC'D WNL. PATIENT DISCHARGED TO HOME VIA WHEELCHAIR. 1320: ANTIBIOTIC PRESCRIPTION CALLED IN TO [facility]. PATIENT CALLED AND INFORMED OF ANTIBIOTIC PRESCRIPTION TO COMPLIANCE SPECIALIST AT [facility].
--- NOTE | 2020-08-26 14:36 | OR ---
[facility] [address] [place], [place] [address] Signed DATE OF OPERATION: 08/26/2020 SURGEON: Ezekiel Chong MD PREOPERATIVE DIAGNOSIS: Inferior turbinate hypertrophy. POSTOPERATIVE DIAGNOSIS: Inferior turbinate hypertrophy. PROCEDURE: Cautery inferior turbinates. ANESTHESIA: General LMA; Bereket SALCEDO. PREOPERATIVE HISTORY: Katelyn is a 70-year-old lady with a long history of nasal obstruction, congestion, unresponsive to appropriate medications. She is found to have inferior turbinate hypertrophy on exam in the office and she was taken to the operating room for the above-mentioned procedures. OPERATIVE PROCEDURE AND FINDINGS: After informed consent, the patient was taken to the operating room, placed in supine position, where general LMA anesthesia was induced. The patient and procedure were verified. The patient received preoperative intranasal oxymetazoline and intravenous Ancef. Headlight speculum exam of the nasal cavity showed the left side to be clear. An inferior turbinate was surgically absent, widely patent nasal passage on the left. The right side, the inferior turbinate was decongested. Prominent cautery was performed with a long handle needle point cautery multiple passes, transmucosal on the right inferior turbinate, starting anteriorly extending all the way back posteriorly on the medial and inferior surface. Excellent decongestion shrinkage in size and improvement in the nasal passage after the cautery was performed. Minimal bleeding stopped afterwards. Packing was placed. Trimmed Merocel pack placed on the right. Pharynx was suctioned clear of blood secretions. The patient was then awakened, extubated, and transported to recovery room in good condition. No complications. BLOOD LOSS: Minimal. Electronically Signed By: EZEKIEL CHONG MD 08/26/20 1436 PATIENT NAME: KATELYN MCELROY OPERATIVE REPORT DATE OF : 54 REPORT #: [id number] PHYSICIAN: EZEKIEL CHONG MD PCP: GAMAL DAI MD REPORT IS CONFIDENTIAL AND NOT TO BE RELEASED WITHOUT AUTHORIZATION [facility] [address] [place] [address], [place] [address] Signed SPECIMENS: No specimen. DRAINS: No drains. PACKING: One piece of Merocel, right nostril. Ezekiel Chong MD GC/MODL /[id number] Copies: ~ Electronically Signed By: EZEKIEL CHONG MD 08/26/20 1436 PATIENT NAME: KATELYN MCELROY OPERATIVE REPORT DATE OF : 54 REPORT #: [id number] PHYSICIAN: EZEKIEL CHONG MD PCP: GAMAL DAI MD REPORT IS CONFIDENTIAL AND NOT TO BE RELEASED WITHOUT AUTHORIZATION
== END 2020-08-26 12:48 | disposition home or self-care (01) ==
LOC: OPS 07:47 → DS 07:48 → OPS 09:00
PROVIDERS: ATTEND Otolaryngology
PROC: 095L7ZZ Destruction of Nasal Turbinate, Via Natural or Artificial Opening (ICD-10-PCS; principal; 2020-08-26 09:00)
DX: J34.3 Hypertrophy of nasal turbinates (principal); J34.89 Other specified disorders of nose and nasal sinuses; J34.2 Deviated nasal septum; J32.4 Chronic pansinusitis; E03.9 Hypothyroidism, unspecified; J44.9 Chronic obstructive pulmonary disease, unspecified; M81.0 Age-related osteoporosis without current pathological fracture; G47.33 Obstructive sleep apnea (adult) (pediatric); K21.9 Gastro-esophageal reflux disease without esophagitis; G43.909 Migraine, unspecified, not intractable, without status migrainosus; G62.9 Polyneuropathy, unspecified; Z79.899 Other long term (current) drug therapy; Z79.82 Long term (current) use of aspirin; Z88.5 Allergy status to narcotic agent; Z88.1 Allergy status to other antibiotic agents; Z88.2 Allergy status to sulfonamides; Z88.8 Allergy status to other drugs, medicaments and biological substances; Z91.040 Latex allergy status
CPT/HCPCS: 00160; J0690; J2001; J2405; J2704; J7121

== ENCOUNTER 2021-01-14 11:58 | Observation (INO) | payer MEDICARE, BC ==
[~2021-01-14] VITALS: Ht 160 cm; Wt 57.8 kg
[~2021-01-14 11:58] MED LIST changes: +SPIRIVA RESPIMAT4 GM INH; +WIXELA 500-501 EACH INH
--- OUTSIDE RECORDS SUMMARY | 2021-01-14 12:06 | XMS ---
PreManage Notification: KATELYN MCELROY Security Agronomy Technician Events No recent Security Events currently on file CRITERIA MET - History of Sepsis Dx CARE PROVIDERS JENIFER DAILM Internal Medicine 07/14/2018-Current PHONE: Unknown Blake has no Care Guidelines for this patient. Care History Medical/Surgical 07/14/2018 [facility] - PATIENT HAS A FOLLOW UP APT WITH DR DAI ON 07/18/18- FOR RECENT ED VISIT ON 07/09/18. - Patient is currently established with [facility]. If patient is seen in the ED during business hours. Please contact CHWs at [facility]. Care Recommendation: This patient has had 5 or more Emergency Department visits in the last 12 months.\T\nbsp; Patient requires education on the scope and purpose of the ED as an acute care provider not a Primary Care Provider and should not be utilized for chronic conditions.\T\nbsp; These are guidelines and the provider should exercise clinical judgment when providing care. E.D. VISIT COUNT (12 MO.) 1 [facility] TOTAL 1 NOTE: Visits indicate total known visits. ED/UCC VISIT TRACKING (12 MO.) 01/14/2021 11:[address] [facility] [place] TYPE: Emergency COMPLAINT: - N/V, HEADACHE, BODY ACHES, ABD PAIN INPATIENT VISIT TRACKING (12 MO.) No inpatient visits to display in this time frame [email or web address]
[2021-01-14] MEDS ORDERED: FOSAMAX70 MG PO (12:25)
--- NOTE | 2021-01-14 16:00 | NUR ---
THIS RN RECEIVED REPORT FROM FREDY MAYER FROM THE ER
--- NOTE | 2021-01-14 16:02 | NUR ---
PT ARRIVED TO THE FLOOR AT THIS TIME AND WAS ABLE TO AMBULATE TO THE RESTROOM AND HAVE ADEQUATE OUTPUT. PT STATES THAT SHE IS HAVING PAIN. THIS RN REVIEWED PTS ALLERGIES WITH PT.
[2021-01-14] MEDS ORDERED: SINGULAIR10 MG PO (17:12)
[2021-01-14] MEDS ORDERED: ADVAIR 500-501 EACH INH (17:17)
--- NOTE | 2021-01-14 19:55 | NUR ---
PT AWAKE, ALERT AND ORIENTED. ON ROOM AIR, CLEAR LUNGS, IV D5LR AT 100CC/HR INFUSING W/O PROBLEMS LAC. MULTIPLE BRUISING OVER BOTH LOWER ARMS AND R THIGHT. SLIGHT RED/PINK RAISED RASH OVER R AC AREA. NO C/O ITCHING. NO C/O PAIN AT THIS TIME. VOIDING QS. TOLERATING CLEAR LIQUIDS, NO EMESIS AT THIS TIME. FAMILY FRIEND IN ROOM.
--- NOTE | 2021-01-15 00:30 | NUR ---
Answered call light, assisted pt to BR. Pt c/o pain (7) rn notified. Warm blankets given to pt. Call light in reach, bed in lowest positon. No furhter assistance needed at this time.
--- NOTE | 2021-01-15 00:30 | NUR ---
using cpap, c/o 7/10 abd pain after getting up. medicated with fentanyl 50mcg iv
--- NOTE | 2021-01-15 02:32 | NUR ---
VS done. gave warm blankets to pt, call light within reach, no further assistance needed at this time.
--- NOTE | 2021-01-15 02:38 | NUR ---
COOP, AWAKES EASILY, NO FURTHER C/O PAIN AT THIS TIME OR N/V. IVF INFUSING, PT USING HER CPAP.
--- NOTE | 2021-01-15 03:55 | NUR ---
transfer center called us back to find how pt was doing, there is no bed available yet, they will call back 1X shift to keep us informed.
--- NOTE | 2021-01-15 05:04 | NUR ---
Pt has slept, Up tobr, voiding QS. has been medicated with Fentanyl per abd pain with good to fair relief, no emesis, no diarrhea. IVF infusing w/o problems. Pt tolerating clear liquids. Transfer center called here to get updates on pt. no bed available yet. 1PA, uses home CPAP at hs
--- NOTE | 2021-01-15 05:36 | NUR ---
Pt walked hallways, tolerated well, c/o 7/10 abd pain, medicated with fentanyl 50mg iv, up to br, voided small amounts of yellow urine. ivf infusing, on room air, 2 warm blankets given on requests.
--- NOTE | 2021-01-15 06:13 | CONS ---
[facility] [address], [place] [address] Signed DATE OF CONSULTATION: 01/14/2021 CHIEF COMPLAINT: Right upper quadrant abdominal pain. HISTORY OF PRESENT ILLNESS: Paola is a 70-year-old female, who I have known for many years. She woke last night with upper abdominal pain in the epigastric and right upper quadrant areas. She has had some nausea, vomiting, and anorexia. She had chills and fevers, and finally decided to come the emergency room for evaluation. In the emergency room, she was tender in the epigastric and right upper quadrant areas. White count was elevated at 12.8, but the liver function tests were fine. She is known to have a small cyst in the left lobe of the liver, clear back in 2013. It was around 34 x 35 x 35 mm at that time. Ultrasound today showed that cyst has increased in size to 68 x 57 x 78 mm, and she has multiple mobile stones in the gallbladder. The gallbladder wall was said to be mildly thickened with an unremarkable common bile duct. I was asked to see her as a general surgeon on-call. She has been given IV fluids and cefepime and Flagyl and generally feeling better. PAST MEDICAL HISTORY: Lower extremity lymphedema, asthma, endometriosis, small bowel obstruction, left hepatic cyst (2013), rectocele, enterocele, and vaginal bleeding from her endometriosis. PAST SURGICAL HISTORY: Ovarian cystectomy, followed by full hysterectomy about a year later in the 30s, right breast biopsy, colonoscopy, left wrist surgery x2, incidental appendectomy during the hysterectomy and as well as a laparotomy with lysis of adhesions for small bowel obstruction in [address] Redd. SOCIAL HISTORY: She does not smoke. She has an occasional drink. She is to [employer] . She is semi-retired and has one daughter. Dr. Joey Baez is her primary care provider, Dr. Fidel Burgos is her uro-visual presentation manager at [facility]. Dr. Vita Mckeon is her supervisor farm equipment maintenance at [facility]. FAMILY HISTORY: Unremarkable. REVIEW OF SYSTEMS: The pertinent positives are included in the above. ALLERGIES: Electronically Signed By: YAO SMITH MD 01/15/21 0613 PATIENT NAME: PAOLA MCELROY CONSULTATION DATE OF : 54 REPORT #: [id number] PHYSICIAN: YAO SMITH MD PCP: JOEY BAEZ MD REPORT IS CONFIDENTIAL AND NOT TO BE RELEASED WITHOUT AUTHORIZATION [facility] [address], [place] [address] Signed Trimethoprim, polymyxin B, Fomepizole, Celecoxib, Rofecoxib, latex, Tipranavir, whexjjlb-0-YR1, Sulfone, morphine, codeine, Tylenol, Sulfinpyrazone, ibuprofen, Aleve, neomycin, bacitracin, sulfonylurea, salicylates, thiazides, and sulfa. MEDICATIONS: 1. Albuterol. 2. Zofran. 3. Claritin. 4. Lyrica. 5. EpiPen. 6. Pseudoephedrine. 7. Linzess. 8. Aspirin. 9. Flonase. 10. Saline nasal spray. 11. Ipratropium/albuterol. 12. Spiriva. 13. Fluticasone/salmeterol. 14. Fosamax. PHYSICAL EXAMINATION: VITAL SIGNS: Her blood pressure 114/63, heart rate 73, respiratory rate 16, temperature is 98.2 degrees. She is 98% on room air. She is 5 feet 3 inches, 56 kg. GENERAL: Paola is a 70-year-old female, who looks older than her stated age. She always looks a little chronically ill. LUNGS: Clear to auscultation bilaterally. HEART: Regular rate and rhythm, without murmurs. ABDOMEN: Soft and flat. She is tender and has some fullness in the epigastric area and seems to have some mild tenderness to deep palpation in the right upper quadrant. LABORATORY DATA: Her white blood count is 12.8, hemoglobin 14, neutrophils 84, and platelets 230. BUN 11 and creatinine 0.9. Urinalysis negative. Total bilirubin 0.6, AST 23, ALT 24, alkaline phosphatase 54. Albumin is 4.1 and lipase is 5. RADIOGRAPHIC STUDIES: The ultrasound shows the left hepatic lobe cyst, has increased in size to 68 x 57 x 78 mm from 34 x 35 x 35 mm. She has a gallbladder full of mobile stones and mild wall thickness, but the common bile duct is unremarkable. No pericholecystic fluid. ASSESSMENT AND PLAN: Paola is a 70-year-old female, who presents as above. Paola is very intuiting with her own health care, very sensitive to surgery, strictly her abdomen. She is well aware that the hepatic cyst is increased in size, but her current issue seems to be her Electronically Signed By: YAO SMITH MD 01/15/21 0613 PATIENT NAME: PAOLA MCELROY CONSULTATION DATE OF : 54 REPORT #: [id number] PHYSICIAN: YAO SMITH MD PCP: JOEY BAEZ MD REPORT IS CONFIDENTIAL AND NOT TO BE RELEASED WITHOUT AUTHORIZATION [facility] [address], [place] [address] Signed cholecystitis and cholelithiasis. I went through all this in great detail with Paola. She updated me about her visits to [facility] with her supervisor farm equipment maintenance and her urogynecologist. There was some plan to do her pelvic floor surgery this fall. She has already spoken to her supervisor farm equipment maintenance about coming down [facility]. She would like to have the liver cyst evaluated along with the gallstones. If she needs to have both that was surgically, she would like to have one surgery rather than 2. At this point, she is generally stable, and I think we can certainly admit her for observations and IV fluids, antibiotics and maybe some clear liquids as well. We will add in some labs in the morning. I will go ahead and contact [facility] per her request and we will proceed from there. She and her have expressed understanding and agreed with the above plan. Yao Smith MD ALB/MODL /[id number] cc: MD Joey Hutton MD Copies: YAO SMITH MD, MALCOLM MD ~ Electronically Signed By: YAO SMITH MD 01/15/21 0613 PATIENT NAME: PAOLA MCLEROY CONSULTATION DATE OF : 54 REPORT #: [id number] PHYSICIAN: YAO SMITH MD PCP: JOEY BAEZ MD REPORT IS CONFIDENTIAL AND NOT TO BE RELEASED WITHOUT AUTHORIZATION
--- NOTE | 2021-01-15 08:15 | NUR ---
REPORT RECEIVED FROM NIGHT RN AND PT. CARE RESUMED. PT. REPORTS AN ACHING HEADACHE AND INTERMITTENT SHARP PAIN IN RIGHT ABDOMEN. SHE DOES NOT WANT PAIN MED UNTIL SHE RETURNS FROM CT. SHE REPORTS THAT HER ABD. IS MORE DISTENDED THAN NORMAL. BOWEL TONES ACTIVE. IV SITE WNL AND FLUSHES. PT. ORIENTED AND ALERT. AT BEDSIDE. LUNGS CLEAR THROUGHOUT. C.T. TECH ARRIVED TO TAKE PATIENT BY WHEELCHAIR.
--- NOTE | 2021-01-15 10:14 | NUR ---
IV SITE IS PAINFUL AND LEAKY SINCE RETURNING FROM CT. IV ABX STOPPED UNTIL A NEW IV CAN BE PLACED.
--- NOTE | 2021-01-15 11:51 | NUR ---
PT. WAS ASSISTED BY ANOTHER RN TO THE BATHROOM AND REPORTED SHARP 9/10 RT ABD. PAIN THAT SHE HAD NOT EXPERIENCED PRIOR. ADMIN. FENTANYL. DISCUSSED DILAUDID IF PAIN DOES NOT SUBSIDE AND PT. REPORTS NO ADVERSE REACTION TO IT IN TH PAST. PT. LEFT RESTING WITH CALL LIGHT IN REACH.
--- NOTE | 2021-01-15 13:05 | NUR ---
PT ALERT, ORIENTED AND LAYING IN BED WITH ICE PACK ON HEAD. PT'S SIS AT BS. PT REMEMBERED ME FROM PREVIOUS VISIT, SAID SHE WAS DOING OK AT THE MOMENT. PT DID MENTION THAT SHE IS TO DC LATER TODAY, THEN TO ANOTHER FACILITY FOR SURGERY. HAD GOOD VISIT, PT REQUESTED PRAYER. LEFT HUSSAIN HOPSON WILL FOLLOW
--- NOTE | 2021-01-15 14:13 | NUR ---
PATIENT REPORTS PAIN IS TOLERABLE, EXCEPT WHEN AMBULATING. SHE STILL C/O A HEADACHE THAT SHE NORMALLY TREATS WITH ICE PACK AND ASPIRIN AT HOME. GIVEN A FRESH ICE PACK. ABDOMEN PARTNER ON RIGHT SIDE AND PT. REPORTS IT IS STILL DISTENDED. DRINKING BROTH, BUT REPORTS MILD NAUSEA. IV SITE WNL AND IVF RUNNING. PT. ASSISTED WITH REPOSITIONING AND LEFT RESTING WITH CALL LIGHT IN REACH.
--- NOTE | 2021-01-15 14:16 | NUR ---
CHECKED ON PT. RM DARKENED, PT NOT FEELING WELL. GAVE ENCOURAGEMENT AND PRAYER WILL FOLLOW
[2021-01-15] MEDS ORDERED: ALBUTEROL2.5 MG/3 M INH (14:47)
[2021-01-15] MEDS ORDERED: MIRALAX119 GM PO (14:49)
[2021-01-15] MEDS ORDERED: VITAMIN C500 M1 PO (14:50)
[2021-01-15] MEDS ORDERED: TURMERIC500 M2 PO (14:50)
[2021-01-15] MEDS ORDERED: VITAMIN D3125 MC2 PO (14:50)
--- NOTE | 2021-01-15 14:51 | NUR ---
MED REC COMPLETE
--- NOTE | 2021-01-15 15:50 | NUR ---
IV WAS LEAKING AND DRIPPING DOWN HER HAND. PT. STATED THIS HAS HAPPENED IN THE PAST AND SHE HAD TO HAVE A PICC LINE. IV DC'D. WILL DISCUSS WITH MD WHETHER NEW IV SHOULD BE STARTED. PT. ADMIN. PREGABALIN FOR PAIN.
--- NOTE | 2021-01-15 16:25 | NUR ---
PT. REPORTS INCREASING NAUSEA. CALLED REGARDING NO IV ACCESS AND NAUSEA. ORDER FOR SUBLINGUAL ZOFRAN, PO PHENERGAN. . STATES HE WILL BE BY THIS EVENING TO SEE PT.
--- NOTE | 2021-01-15 18:00 | NUR ---
PT.'S ABD PAIN IS RELIEVED WITH PO DILAUDID AND REPORTS NAUSEA HAS SUBSIDED. SHE IS TOLERATING FULL LIQUIDS. WILL CONTINUE TO MONITOR.
--- NOTE | 2021-01-15 20:17 | NUR ---
Pt very anxious, reassured easily, using CPAP, up to br, voided, back to bed, took meds, ate bites sof dinner tray. Repositioned back in bed. no emesis. abd soft, tender, had bm. no iv site. took po meds well. warm pack for abd and ice pacck to back of head. call light and fluids at bedside
--- NOTE | 2021-01-15 21:12 | NUR ---
UP TO BR, VOIDED QS, C/O ABD PAIN, NO N/V, MEDICATED WITH DILAUDID 4MG PO. TOLERATING LIQUIDS WELL. BACK TO BED, USING CPAP. COOP
--- NOTE | 2021-01-15 23:33 | NUR ---
RESTING, USING CPAP, NO DISTRESS, CALL LIGHT AND FLUIDS AT BEDSIDE
--- NOTE | 2021-01-16 01:05 | NUR ---
UP TO BR, VOIDED QS, BACK TO BED, C/O ABD PAIN, MEDICATED WITH DILAUDID 4MG PO BACK IN BED, CPAP IN USE. WARM PAD TO BACK AND ICED PACK TO ABD, CALM
--- NOTE | 2021-01-16 03:22 | NUR ---
WALKING HALLWAYS, STATED NO PAIN AT THIS TIME, COMFORTABLE. C/O MILD ITCHING BUT OK, NO SOB DENIES IT ALLERGY, "JUST PROBABLY FROM BEING IN BED" TOLERATING WELL
--- NOTE | 2021-01-16 03:30 | NUR ---
ASSIST PT TO [facility], PRIYA FWW
--- NOTE | 2021-01-16 05:43 | NUR ---
PT CALLED FOR ASSISTANCE TO RESTROOM SBA, SHE IS NOW BACK IN BED. PROVIDED A WARM PACK AND ICE PACK PER PT REQUEST. PT WOULD LIKE TO WALK THIS AM. PT DENIES FURTHER NEEDS AT THIS TIME. CALL LIGHT IS CLOSE.
--- NOTE | 2021-01-16 05:59 | NUR ---
Pt awake, visiting with family via phone. Has slept off and on this shift, used home CPAP. On room air at this time. Has been medicated per abd pain, with good to fair pain relief. Ice pack to abd and alternating warm pad to abd and neck area.No emesis. Walked hallways. tolerated well. No IV site. tolerating full liquid diet. Up to br with assist, voiding QS. Waiting on transfer Center call for open bed.. Pleasant and coop. Alert and oriented. uses call light well
--- NOTE | 2021-01-16 06:30 | NUR ---
ASSIST PT TO [facility] SBA FWW
--- NOTE | 2021-01-16 08:20 | NUR ---
REPORT RECEIVED FROM NIGHT RN AND PT. CARE RESUMED. PT. WAS ADMIN. 2MG PO DILAUDID AT 0800 FOR PAIN. REPORTS WORSENING PAIN WITH AMBULATION IN RIGHT ABDOMEN AND ADDITIONAL 2MG PO DILAUDID ADMIN. PT. REPORTS PAIN HAS IMPROVED OVERNIGHT. SHE HAS MILD NAUSEA AND DENIES NEED FOR ZOFRAN. EATING CREAMED RICE. ABDOMEN TENDER ON RIGHT SIDE, SOFT AND PT. REPORTS IT IS SLIGHTLY DISTENDED. BOWEL TONES ACTIVE. LUNGS CLEAR THROUGHOUT. DISCUSSED POC AND PAIN MANAGEMENT. PT. LEFT RESTING WITH CALL LIGHT IN REACH.
--- NOTE | 2021-01-16 09:45 | NUR ---
Pt states she lives in a 1 story home with her spouse with 8 steps. Does not have issues with walking up steps. She does not use any DME is active getting her 10,000 steps per day and working in her garden. Spouse is present and they both deny financial issues. Awaiting plan from Dr. Mcmullen as pt would like to transfer to a [facility] as she is needing two surgeries and would like them completed at the same time. Dr Mcmullen has been discussing with surgeons in [place], but he is in surgery today. Pt states he also discussed discharging her to home for two weeks and surgery would be scheduled. She is very concerned about pain medication and discharge with pain meds. We discussed this is up to the DrSai and he usually does not on discharge. She is wanting prescriptions now and I let her know, Dr. Ma will need to complete. She and her spouse have been vaccinated for covid. Will follow up with pt after I am able to speak with Dr. Ma.
--- NOTE | 2021-01-16 12:36 | NUR ---
PT RESTING IN BED, RM DARKENED. FEELING BETTER TODAY, WAS ABLE TO SLEEP SOME LAST NIGHT. THANKED ME FOR COMING IN, GAVE ENCOURAGEMENT AND COMFORT. WILL FOLLOW NEEDED
--- NOTE | 2021-01-16 13:15 | NUR ---
Spoke with Dr. Ma. Pt has been discharge to home. He has already spoken with her.
[2021-01-16] MEDS ORDERED: CIPRO500 MG PO (13:20)
[2021-01-16] MEDS ORDERED: METRONIDAZOLE250 MG PO (13:22)
[2021-01-16] MEDS ORDERED: DILAUDID4 MG PO (13:23)
--- NOTE | 2021-01-16 14:37 | NUR ---
PT. REQUESTING AN ORDER FOR ZOFRAN AFTER DISCHARGED. DAY SURGERY NURSE CONTACTED AND WILL ATTEMPT TO GET A VERBAL ORDER FROM DR. SMITH WHILE HE'S IN SURGERY.
--- NOTE | 2021-01-16 14:42 | NUR ---
MORENO CADE IN DAY SURGERY RECEIVED A VERBAL ORDER FROM FOR EMIL AND WILL CALL IT IN TO [facility].
--- NOTE | 2021-01-16 14:45 | NUR ---
CALLED IN PERSCRIPTION TO [facility], SPOKE WITH PHARMACIST AKHIL. VERBAL ORDER FROM DR. SARAH STEIN SL 4 MG Q6HR PRN QUANTITY 10 WITH 1 REFILL.
--- NOTE | 2021-01-16 15:06 | NUR ---
ALL DISCHARGE INSTRUCTIONS REVIEWED WITH PT. AND QUESTIONS ANSWERED. PT. DISCHARGED WITH ALL BELONGNINGS AND LEFT VIA WHEELCHAIR WITH . PAIN SKEIN WASHER PRIOR TO DISCHARGE AND PT. DENIES NAUSEA.
--- NOTE | 2021-01-16 19:38 | NUR ---
PATIENT TOOK A SHOWER TODAY BEFORE SHE LEFT. ALSO CHANGED HER BED LINENS. GOT HER AN ICE PACK. ALSO THIS MORNING GOT HER A HOT PACK AND ICE PACK.
--- NOTE | 2021-01-18 06:48 | DS ---
[facility] [address], [place] [address] Signed ADMISSION DATE: 01/14/2021 DISCHARGE DATE: 01/16/2021 FINAL DIAGNOSES: 1. Acute on chronic cholecystitis cholelithiasis. 2. Left hepatic lobe liver cyst. PROCEDURES: 1. Ultrasound of gallbladder and liver. 2. CT scan of the liver. HISTORY OF PRESENT ILLNESS: Katelyn is a 70-year-old female, whom we have known for a long time. She has had a left hepatic lobe liver cyst at least back in 2013. However, she had developed increasing right upper quadrant abdominal pain and decided to come to the emergency room for evaluation. White count was a little elevated, but the liver function tests were fine. The ultrasound showed the gallbladder nearly full of stones. Gallbladder wall is a little thickened. Common bile duct was unremarkable. The left hepatic liver cyst had increased in size just a bit. Maybe 5 cm up to about 7 cm; however, she was tender over the liver cyst with the transducer and on physical exam. She had been admitted to my service and placed on antibiotics given the above. HOSPITAL COURSE: Katelyn was admitted as above. We kept her on antibiotics and IV fluids. By the morning, her white count had returned to normal. She has spent quite a bit of time in [place] at various hospitals and would prefer to have one surgery dealing with the gallbladder and the liver cyst. Consequently, her family had recommended Dr. Paxton Islas at [facility]. I had contacted Dr. Islas and he was very accommodating and helpful and he is hoping to work her in through a teleconference and then maybe in the next 7-10 days or so to have her come down to 3-[address] to [place] to have her surgery. Katelyn has improved each day and is doing well with her Dilaudid. She has a large number of allergies, so it is difficult to choose other narcotics. We put her on Cipro and Flagyl, and she has done very well with those medications. She has also resumed her chronic medications. After talking with Katelyn and her each day, she feels comfortable enough to go home now with her here in [place] with the antibiotics and pain medication. She will be teleconferencing with Dr. Islas to make arrangements for her surgery. In the meantime, she is welcome to call my office and I can certainly see her when she comes back to [place] for surgical followup. They have expressed understanding and agreed to the above plan. Electronically Signed By: YAO SMITH MD 01/18/21 0648 PATIENT NAME: KATELYN MCELROY DISCHARGE SUMMARY DATE OF : 54 REPORT #: [id number] PHYSICIAN: YAO SMITH MD PCP: GAMAL DAI MD REPORT IS CONFIDENTIAL AND NOT TO BE RELEASED WITHOUT AUTHORIZATION [address] [address] Signed MD TUNDE Hutton/PHILLIPL /[id number] cc: MD Dr. Paxton Ventura Copies: GAMAL DAI MD ~ Electronically Signed By: YAO SMITH MD 01/18/21 0648 PATIENT NAME: KATELYN MCELROY DISCHARGE SUMMARY DATE OF : 54 REPORT #: [id number] PHYSICIAN: YAO SMITH MD PCP: GAMAL DAI MD REPORT IS CONFIDENTIAL AND NOT TO BE RELEASED WITHOUT AUTHORIZATION
== END 2021-01-16 15:00 | disposition home or self-care (01) ==
LOC: ED 11:58 → MS 12:00
PROVIDERS: ADMIT Colon & Rectal Surgery; ATTEND Colon & Rectal Surgery
DX: K80.12 Calculus of gallbladder with acute and chronic cholecystitis without obstruction (principal); K76.89 Other specified diseases of liver; J45.20 Mild intermittent asthma, uncomplicated; G89.29 Other chronic pain; Z20.822 Contact with and (suspected) exposure to COVID-19; Z88.5 Allergy status to narcotic agent; Z88.2 Allergy status to sulfonamides; Z88.8 Allergy status to other drugs, medicaments and biological substances; Z88.6 Allergy status to analgesic agent; Z88.1 Allergy status to other antibiotic agents; Z91.040 Latex allergy status; Z79.82 Long term (current) use of aspirin; Z90.710 Acquired absence of both cervix and uterus; Z90.49 Acquired absence of other specified parts of digestive tract
CPT/HCPCS: 36415; 74170; 76705; 80053; 81001; 82105; 82378; 83690; 83735; 84100; 84134; 85025; 87088; 94640; 96372; 96374; 96376; 99285-25; C9113; C9803; G0378; J0692; J1650; J2405; J3010; J3480; J7030; J7121; Q9967; U0003

== ENCOUNTER 2021-04-22 12:38 | Emergency (ER) | payer MEDICARE, BC ==
[~2021-04-22] VITALS: Ht 160 cm; Wt 57.7 kg
[~2021-04-22 12:38] MED LIST changes: +ADVAIR 500-501 EACH INH; +ALBUTEROL2.5 MG/3 M INH; +CIPRO500 MG PO; +DILAUDID4 MG PO; +FOSAMAX70 MG PO; +METRONIDAZOLE250 MG PO; +MIRALAX119 GM PO; +SINGULAIR10 MG PO; +TURMERIC500 M2 PO; +VITAMIN C500 M1 PO; +VITAMIN D3125 MC2 PO
--- OUTSIDE RECORDS SUMMARY | 2021-04-22 12:42 | XMS ---
PreManage Notification: KATELYN MCELROY [employer] No recent Security Events currently on file CRITERIA MET - [facility] - Has Care Guidelines CARE PROVIDERS GAMAL DIA Internal Medicine 07/14/2018-Current PHONE: Unknown Blake has no Care Guidelines for this patient. Care History Medical/Surgical 01/14/2021 [facility] - Patient is currently established with [facility]. If patient is seen in the ED during business hours. Please contact CHWs at [facility]. Care Recommendation: This patient has had 5 or more Emergency Department visits in the last 12 months.\T\nbsp;Patient requires education on the scope and purpose of the ED as an acute care provider not a Primary Care Provider and should not be utilized for chronic conditions.\T\nbsp; These are guidelines and the provider should exercise clinical judgment when providing care. E.D. VISIT COUNT (12 MO.) 2 [facility] TOTAL 2 NOTE: Visits indicate total known visits. ED/UCC VISIT TRACKING (12 MO.) 04/22/2021 12:[address] [facility] [place] TYPE: Emergency COMPLAINT: - DEHYDRATED, CONGESTION, SORE THROAT, DIARRHEA 01/14/2021 11:[address] [facility] [place] TYPE: Emergency COMPLAINT: - N/V, HEADACHE, BODY ACHES, ABD PAIN INPATIENT VISIT TRACKING (12 MO.) 01/14/2021 12:00 [facility] [place] TYPE: Observation COMPLAINT: - ACUTE CHOLECYSTITIS DIAGNOSES: - FPC (current) use of aspirin - Allergy status to sulfonamides - Allergy status to other drugs, medicaments and biological substances - Allergy status to narcotic agent - Calculus of gallbladder with acute and chronic cholecystitis without obstruction - Acquired absence of both cervix and uterus - Mild intermittent asthma, uncomplicated - Other chronic pain - Acquired absence of other specified parts of digestive tract - Allergy status to other antibiotic agents - Acute cholecystitis - Latex allergy status - Allergy status to analgesic agent - Other specified diseases of liver [email or web address]
[2021-04-22] MEDS ORDERED: PREGABALIN50 MG PO (13:24)
== END 2021-04-22 17:13 | disposition home or self-care (01) ==
LOC: ED 12:38
DX: B34.9 Viral infection, unspecified (principal); Z20.822 Contact with and (suspected) exposure to COVID-19; J45.909 Unspecified asthma, uncomplicated; Z88.2 Allergy status to sulfonamides; Z88.5 Allergy status to narcotic agent; Z91.040 Latex allergy status; Z88.8 Allergy status to other drugs, medicaments and biological substances; Z88.1 Allergy status to other antibiotic agents; Z79.899 Other long term (current) drug therapy; Z79.82 Long term (current) use of aspirin
CPT/HCPCS: 51701; 71045; 80053; 81001; 85025; 99284-25; C9803; J2405; J7030; U0003

== ENCOUNTER 2021-06-09 09:01 | Day surgery (SDC) | payer MEDICARE, BC ==
--- NOTE | 2021-06-08 11:18 | NUR ---
TALKED WITH LYNDON Chan CRNA ABOUT PATIENT AND HX OF SEVER N/V WITH SURGERY. LYNDON ORDER SCOPOLAQMINE PATCH FOR PATIENT TO APPLY AT BEDTIME TONIGHT 06-08-21. EXPLAINED TO PATIENT HOW IT WORKS AND SIDE EFFECTS.
[~2021-06-09] VITALS: Ht 160 cm; Wt 54.1 kg
[~2021-06-09 09:01] MED LIST changes: +FLAGYL500 MG PO; +LYRICA25 MG PO; +MULTI VITAMIN1 EACH PO; +PREGABALIN50 MG PO; +PREMARIN0.3 MG PO; +SPIRIVA18 MCG INH
--- NOTE | 2021-06-09 11:04 | NUR ---
06/09/21 1104 Sheets,Renetta 1058 PT ARRIVED TO PACU ON 6L VIA MASK, RESP EVEN AND UNLABORED. PT HEAD TURNED TO SIDE AND NO JAW THRUST NEEDED. VSS.
--- NOTE | 2021-06-09 12:48 | NUR ---
CONNECTED WITH PT JUST BEFORE SURGERY-PT ANXIOUS, REQUESTED PTAYER. GAVE ENCOURAGEMENT TO HER AND NASIMA. WILL CONTINUE TO FOLLOW NEEDED
--- NOTE | 2021-06-09 14:30 | NUR ---
1215: PT ARRIVES TO DAY SURGERY ROOM 6 VIA STRETCHER FROM PACU. AWAKE AND ALERT ON ARRIVAL. VSS, RESP EVEN AND UNLABORED. ICE TO INCISIONAL SITE. PT REPORTS PAIN AT SITE AND UP INTO TEETH. STERISTRIPS IN PLACE. ICE WATER AND CRACKERS PROVIDED. 1255: PT WITH CALL FOR THIS RN. REPORTS URGE TO VOID. DANGLES AT THE BEDSIDE, EDWIN WELL DENIES DIZZINESS AND SOB. AMBULATES WITH STANDBY ASSIST FROM THIS RN. STEADY GAIT. SUCCESSFUL POSTOP VOID, 450ML. BACK TO ROOM 6 AND DRESSES IN OWN CLOTHES FOR COMFORT 1315: AMARIS RN AT THE BEDSIDE. VSS, RESP EVEN AND UNLABORED. NO CHANGE TO INCISIONAL SITE. PT ASKS ABOUT GOING HOME AND DC INSTRUCTIONS. REQUESTS DIFFERENT FOLLOW UP APPOINTMENT DUE TO CONFLICTING SCHEDULE. MORENO GLEZ CALLS TO MD OFFICE FOR NEW APPOINTMENT. 1345: AFTER GETTING NEW APPOINTMENT PRIOR TO REMOVING IV PT REQUESTS IV PAIN MEDICINE PRIOR TO DC FOR AT HOME COMFORT. 1350: TC PLACED TO MD CASTILLO. NOTIFIED OF PT REQUEST. MD NOT COMFORTABLE WITH ADMINISTERED IV PAIN MEDICINE AT THIS TIME DUE TO EXTENSIVE ALLERGY LIST. PT NOTIFIED. REQUESTS DC AT THIS TIME. 1400: VSS, RESP EVEN AND UNLABORED. NO CHANGE TO INCISION. DISCUSSED MOTRIN PAIN MANAGEMENT AT HOME. DC INSTRUCTIONS PROVIDED AND DISCUSSED. PT VOICES UNDERSTANDING AND DENIES QUESTIONS AND CONCERNS AT THIS TIME. 1415: WHEELED OFF OF UNIT IN WC BY THIS RN. TRANSFERS INTO VEHICLE WITH THIS RN INDEPENDENTLY AND APPROPRIATELY. RESP EVEN AND UNLABORED. NO S/S OF DISTRESS AT THIS TIME
--- NOTE | 2021-06-10 16:04 | PATH ---
[facility] [address], [place] [address] Signed SPECIMEN(S): A RIGHT UPPER LIP LESION SPECIMEN SOURCE: A. RIGHT UPPER LIP LESION CLINICAL HISTORY: Right upper lip pyogenic granuloma. Excision. FINAL PATHOLOGIC DIAGNOSIS: Lip, right upper: - Pyogenic granuloma. - This benign lesion focally extends to the peripheral edge of the specimen. TWK:caw:C2NR MICROSCOPIC EXAMINATION: The lesion is a pyogenic granuloma without atypical features. TWK GROSS DESCRIPTION: The specimen, labeled "IBIS, right upper lip lesion," is received in formalin and consists of one unoriented skin ellipse that measures 1.2 x 0.7 x 0.2 cm. The skin surface shows irregular shaped pink-everett, soft and smooth nodule that measures 0.7 cm in greatest dimension. Nodule abuts surgical margins. Specimen is inked and serial sectioned. Specimen is entirely submitted in cassette (A1). JS (under the direct supervision of a pathologist) The Gross Description was prepared using a voice recognition system. The report was reviewed for accuracy; however, sound-alike word errors, addition and/or deletions may occur. If there is any question about this report, please contact Client Services. PERFORMING LABORATORY: The technical component was performed by [facility], [address] [place] [id number] (Utilization Management Rn: Vicki Menchaca MD; CLIA# [id number]). Professional interpretation was performed by [facility], [address] [address] (CLIA# [id number]). Diagnostician: Dc Dey MD Pathologist Electronically Signed 06/10/2021 PATIENT NAME: KATELYN MCELROY PATHOLOGY DATE OF : 54 REPORT #: [id number] PHYSICIAN: [facility] PCP: GAMAL DAI MD REPORT IS CONFIDENTIAL AND NOT TO BE RELEASED WITHOUT AUTHORIZATION [address] [address] Signed Copies: ~ PATIENT NAME: KATELYN MCELROY PATHOLOGY DATE OF : 54 REPORT #: [id number] PHYSICIAN: [facility] PCP: GAMAL DAI MD REPORT IS CONFIDENTIAL AND NOT TO BE RELEASED WITHOUT AUTHORIZATION
--- NOTE | 2021-06-16 11:13 | OR ---
[facility] [address] [place], [place] [address] Signed DATE OF OPERATION: 06/09/2021 SURGEON: Ezekiel Pierre MD PREOPERATIVE DIAGNOSIS: Right upper lip lesion. POSTOPERATIVE DIAGNOSIS: Right upper lip lesion. PROCEDURE: Excision of right upper lip lesion. ANESTHESIA: General LMA. MATIAS, Barb. PREOPERATIVE HISTORY: Katelyn is a 71-year-old lady who had an upper lip hematoma excised by her contact center director with cautery. The lesion persisted, became quite unsightly and repeat excision was unsuccessful. She now has what appears to be a very prominent granuloma on the right upper lip vermilion. She is taken to the operating for the above-mentioned procedure. OPERATIVE PROCEDURE AND FINDINGS: After informed consent, the patient was taken to the operating room, placed in supine position where general LMA anesthesia was induced. The patient and procedure were verified. The right face and lip were sterilely prepped and draped. The lesion in question was on the vermilion. The right upper lip measured about a cm by 2 cm, it was quite prominent extending about a cm from the mucosal surface of the vermilion. 1% lidocaine with epi was injected in a field type block. The lesion was then excised with a 67 Eitzen blade with a mm margins, elliptical excision in a long axis lateral to medial. Hemostasis was obtained with needle point cautery. Closure was with 5-0 running nylon. Excellent cosmetic closure was obtained. Hemostasis verified. The patient was then awakened, extubated, transported to the recovery room in good condition. No complications. BLOOD LOSS: Minimal. SPECIMEN: To pathology. Electronically Signed By: EZEKIEL PIERRE MD 06/16/21 1113 PATIENT NAME: KATELYN MCELROY OPERATIVE REPORT DATE OF : 54 REPORT #: [id number] PHYSICIAN: EZEKIEL PIERRE MD PCP: GAMAL DAI MD REPORT IS CONFIDENTIAL AND NOT TO BE RELEASED WITHOUT AUTHORIZATION [address] [address] Signed DRAINS: No drains. Ezekiel Pierre MD /PHILLIPL /[id number] Copies: ~ Electronically Signed By: EZEKIEL PIERRE MD 06/16/21 1113 PATIENT NAME: KATELYN MCELROY OPERATIVE REPORT DATE OF : 54 REPORT #: [id number] PHYSICIAN: EZEKIEL PIERRE MD PCP: GAMAL DAI MD REPORT IS CONFIDENTIAL AND NOT TO BE RELEASED WITHOUT AUTHORIZATION
== END 2021-06-09 14:10 | disposition home or self-care (01) ==
LOC: DS 09:01 → OPS 09:01 → DS 12:00 → OPS 14:10
PROVIDERS: ATTEND Otolaryngology
PROC: 0HB1XZX Excision of Face Skin, External Approach, Diagnostic (ICD-10-PCS; principal; 2021-06-09 12:00)
DX: L98.0 Pyogenic granuloma (principal); Z88.1 Allergy status to other antibiotic agents; Z88.5 Allergy status to narcotic agent; Z88.8 Allergy status to other drugs, medicaments and biological substances
CPT/HCPCS: 00300; 88305; J1100; J2001; J2250; J2300; J2405; J2704; J7121